=== PATIENT | male | born 1950 | race Caucasian/White ===

== ENCOUNTER 2018-03-31 00:26 | Emergency (ER) | payer MEDICARE, BC ==
[2018-03-31] MEDS ORDERED: Ketorolac 30 MG/ML SDV IVPUSH ONE ×2 (00:43→01:38)
[2018-03-31] MEDS ORDERED: Sodium Chloride 0.9% 10 ML Syringe FLUSH PRN (00:43)
[2018-03-31] MEDS ORDERED: Sodium Chloride 0.9% 2.5 ML Syringe FLUSH PRN (00:43)
[2018-03-31] MEDS ORDERED: Aspirin 81 MG Tab.Chew PO ONE (00:43)
--- NOTE | 2018-03-31 00:50 | EDM.PDOC ---
ED HPI GENERAL MEDICAL PROBLEM - General Chief Complaint: Chest Pain Stated Complaint: CHEST PAIN Time Seen by Provider: 03/31/18 00:34 - History of Present Illness INITIAL COMMENTS - FREE TEXT/NARRATIVE: HISTORY AND PHYSICAL: History of present illness: The patient is a 67-year-old male who presents to the ED with 2 complaints; first he is complaining of 4 episodes of episodic sharp left-sided chest pain that occurred throughout the course of the entire day yesterday but is not occurring now. He says that he got a little short of breath and sweaty with these episodes that were very brief in duration and there was no radiation of the discomfort. It Was not associated with activity and and he ate and did all of his normal activities today despite discomfort. The patient tells me that he had a stress test about a year ago at [facility] in [place] which was negative after he had had an ER visit at [place] for chest pain. 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 He tells me he has had a slight cough but no fevers and the cough is nonproductive. He is to smoke when he was younger but currently is a nonsmoker he has not had any nausea vomiting diarrhea and has a set ate and drink normally today. His second complaint is that he has pain in his left upper extremity which she says is the entire arm. Initially he told me it was numb when I push him he says it is not numb and it is just painful and it is not swollen. He does not feel weak or tingly and he denies any trauma to the arm or neck/upper back. He says he did not do anything strenuous or unusual and he is right-hand dominant. He says it is the entire arm and he cannot defined episode in the bone or in the muscle is just achy. When I queried him why he came here after an entire day of left arm pain and these twinges of chest pain he said that he was "just getting worried about his arm". He is a challenging history as the patient continuously needs to be focused on the questions and I'm asking and to define his terminology more clearly to me. He has no leg pain or swelling or other extremity complaints. She tells me is not lightheaded or dizzy and has no neck or back pain. He is currently not having any chest discomfort. As for pain management of his left upper extremity the patient only took 2 baby aspirin throughout the entire day and evening. The patient is unsure of when he last had cholesterol and lipids checked and he has a significant family history of brothers both older and younger than him that her bradycardia had cardiac disease and stents as well as a father who has had open heart stents at 65. Review of systems: As per history of present illness and below otherwise all systems reviewed and negative. Past medical history: As per history of present illness and as reviewed below otherwise noncontributory. Surgical history: As per history of present illness and as reviewed below otherwise noncontributory. Social history: No reported history of drug or alcohol abuse. Family history: As per history of present illness and as reviewed below otherwise noncontributory. Physical exam: General: Well-developed well-nourished man who is nontoxic and vital signs are noted by me. I again asked him about his heart rate and he says that it is always low that is not new or different. HEENT: Atraumatic, normocephalic, pupils reactive, negative for conjunctival pallor or scleral icterus, mucous membranes moist, throat clear, neck supple, nontender, trachea midline. Lungs: Clear to auscultation, breath sounds equal bilaterally, chest nontender. Heart: S1S2, regular, negative for clicks, rubs, or JVD. Abdomen: Soft, nondistended, nontender. Negative for masses or hepatosplenomegaly. Negative for costovertebral tenderness. Pelvis: Stable nontender. Genitourinary: Deferred. Rectal: Deferred. Extremities: Atraumatic, negative for cords or calf pain. Neurovascular unremarkable. Full range of motion without defects or deficits. At the left upper extremity all the compartments are soft and there is no evidence of any skin changes erythema swelling or trauma appreciated and there are no palpable bony deformities. Neurovascular is intact throat the entire left upper extremity. Neuro: Awake, alert, oriented. Cranial nerves II through XII unremarkable. Cerebellum unremarkable. Motor and sensory unremarkable throughout. Exam nonfocal. Diagnostics: EKG CBC CMP INR chest x-ray troponin Therapeutics: IV O2 monitor aspirin--he says he took 2 baby aspirin yesterday so he will be redosed--Toradol Patient is feeling stable in the ED and I discussed at length with both him and the all testing results and my recommendation for observation admission. His story of the twinges of chest pain and the left arm pain do not coincide it is unclear if they are related but in light of his age on presentation and significant family history I stressed and recommended observation admission. After lengthy discussion with the patient and the patient and his separately he insists that he wants to go home and follow-up as an outpatient. I stressed to him my concerns and the risks involved and he accepts those. Again stressed the need to have close follow-up and reasons to return to the ED Impression: Atypical episodic chest pain, left upper extremity pain; refusal of admission Definitive disposition and diagnosis as appropriate pending reevaluation and review of above. chest Pain Score (Numeric/FACES): 4 - Related Data Allergies Allergy/AdvReac Type Severity Reaction Status Date / Time No Known Allergies Allergy Verified 03/31/18 00:39 Home Meds: Home Meds . [No Known Home Meds] 03/31/18 [History] Past Medical History Other HEENT History: wears glasses Cardiovascular History: Reports: None Respiratory History: Reports: None Gastrointestinal History: Reports: GERD Genitourinary History: Reports: None Musculoskeletal History: Reports: Fracture Other Musculoskeletal History: right wrist, right knee Neurological History: Reports: None Psychiatric History: Reports: None Endocrine/Metabolic History: Reports: None Hematologic History: Reports: None Immunologic History: Reports: None Oncologic (Cancer) History: Reports: None Dermatologic History: Reports: None - Past Surgical History Head Surgeries/Procedures: Reports: None HEENT Surgical History: Reports: None Cardiovascular Surgical History: Reports: None Respiratory Surgical History: Reports: None GI Surgical History: Reports: None Male Surgical History: Reports: None Endocrine Surgical History: Reports: None Neurological Surgical History: Reports: None Musculoskeletal Surgical History: Reports: ORIF Other Musculoskeletal Surgeries/Procedures:: ORIF right wrist Oncologic Surgical History: Reports: None ED ROS GENERAL - Review of Systems Review Of Systems: ROS reveals no pertinent complaints other than HPI. ED EXAM, GENERAL - Physical Exam Exam: See Below (See dictation) Course - Vital Signs Last Recorded V/S: Last Vital Signs Temp 36.6 C 03/31/18 00:26 Pulse 51 L 03/31/18 00:26 Resp 18 03/31/18 00:26 BP 156/77 H 03/31/18 00:26 Pulse Ox 98 03/31/18 00:26 - Orders/Labs/Meds Orders: Active Orders 24 hr Category Date Time Status Cardiac Monitoring [RC] . DIRECTED Care 03/31/18 00:43 Active EKG 12 Lead [EKG Documentation Completion] [RC] STAT Care 03/31/18 00:37 Active Oxygen Therapy, ED [RC] ASDIRECTED Care 03/31/18 00:43 Active Pulse Oximetry [RC] ASDIRECTED Care 03/31/18 00:43 Active Chest 1V Frontal [CR] Stat Exams 03/31/18 00:43 Taken Sodium Chloride 0.9% [Saline Flush] Med 03/31/18 00:43 Active 10 ml FLUSH ASDIRECTED PRN Sodium Chloride 0.9% [Saline Flush] Med 03/31/18 00:43 Active 2.5 ml FLUSH ASDIRECTED PRN Saline Lock Insert [OM.PC] Stat Oth 03/31/18 00:43 Ordered Medication Orders Sodium Chloride (Saline Flush) 10 ml FLUSH ASDIRECTED PRN PRN Reason: Keep Vein Open Sodium Chloride (Saline Flush) 2.5 ml FLUSH ASDIRECTED PRN PRN Reason: Keep Vein Open Labs: Laboratory Tests 03/31/18 03/31/18 03/31/18 Range/Units 00:40 00:40 00:40 WBC 6.93 (4.0-11.0) K/uL RBC 4.46 L (4.50-5.90) M/uL Hgb 14.8 (13.0-17.0) g/dL Hct 42.6 (38.0-50.0) % MCV 95.5 (80.0-98.0) fL MCH 33.2 H (27.0-32.0) pg MCHC 34.7 (31.0-37.0) g/dL RDW Std Deviation 41.6 (28.0-62.0) fl RDW Coeff of Columba 12 (11.0-15.0) % Plt Count 288 (150-400) K/uL MPV 9.10 (7.40-12.00) fL Neut % (Auto) 40.2 L (48.0-80.0) % Lymph % (Auto) 42.9 H (16.0-40.0) % Turner % (Auto) 11.0 (0.0-15.0) % Eos % (Auto) 4.9 (0.0-7.0) % Baso % (Auto) 1.0 (0.0-1.5) % Neut # (Auto) 2.8 (1.4-5.7) K/uL Lymph # (Auto) 3.0 H (0.6-2.4) K/uL Turner # (Auto) 0.8 (0.0-0.8) K/uL Eos # (Auto) 0.3 (0.0-0.7) K/uL Baso # (Auto) 0.1 (0.0-0.1) K/uL INR 1.05 Sodium 140 (136-148) mmol/L Potassium 3.8 (3.5-5.1) mmol/L Chloride 106 (98-107) mmol/L Carbon Dioxide 27.3 (21.0-32.0) mmol/L BUN 22 H (7.0-18.0) mg/dL Creatinine 1.3 (0.8-1.3) mg/dL Est Cr Clr Drug Dosing TNP Estimated GFR (MDRD) 55.4 ml/min Glucose 103 (74-106) mg/dL Calcium 9.1 (8.5-10.1) mg/dL Total Bilirubin 0.4 (0.2-1.0) mg/dL AST 28 (15-37) IU/L ALT 34 (14-63) IU/L Alkaline Phosphatase 87 (46-116) U/L Troponin I < 0.050 (0.000-0.056) ng/mL Total Protein 6.9 (6.4-8.2) g/dL Albumin 4.0 (3.4-5.0) g/dL Globulin 2.9 (2.0-3.5) g/dL Albumin/Globulin Ratio 1.4 (1.3-2.8) Meds: Medications Generic Name Dose Route Start Last Admin Trade Name Freq PRN Reason Stop Dose Admin Sodium Chloride 10 ml 03/31/18 00:43 Saline Flush FLUSH ASDIRECTED PRN Keep Vein Open Sodium Chloride 2.5 ml 03/31/18 00:43 Saline Flush FLUSH ASDIRECTED PRN Keep Vein Open Discontinued Medications Generic Name Dose Route Start Last Admin Trade Name Freq PRN Reason Stop Dose Admin Aspirin 324 mg 03/31/18 00:43 03/31/18 00:58 Aspirin PO 03/31/18 00:44 324 mg ONETIME ONE Administration Ketorolac Tromethamine 30 mg 03/31/18 00:43 03/31/18 00:58 Toradol IVPUSH 03/31/18 00:44 Not Given ONETIME ONE Ketorolac Tromethamine 30 mg 03/31/18 01:38 03/31/18 01:42 Toradol IVPUSH 03/31/18 01:39 30 mg ONETIME ONE Administration Departure - Departure Time of Disposition: 01:55 Disposition: Home, Self-Care 01 Condition: Good Clinical Impression: Pain of left upper extremity, Refusal of care by patient Chest pain Qualifiers: Chest pain type: unspecified Qualified Code(s): R07.9 - Chest pain, unspecified - Discharge Information Referrals: Vance Randolph Jr, PA-C [Primary Care Provider] - Forms: ED Department Discharge Additional Instructions: The following information is given to patients seen in the emergency department who are being discharged to home. This information is to outline your options for follow-up care. We provide all patients seen in our emergency department with a follow-up referral. The need for follow-up, as well as the timing and circumstances, are variable depending upon the specifics of your emergency department visit. If you don't have a primary care physician on staff, we will provide you with a referral. We always advise you to contact your personal physician following an emergency department visit to inform them of the circumstance of the visit and for follow-up with them and/or the need for any referrals to a consulting specialist. The emergency department will also refer you to a specialist when appropriate. This referral assures that you have the opportunity for followup care with a specialist. All of these measure are taken in an effort to provide you with optimal care, which includes your followup. Under all circumstances we always encourage you to contact your private physician who remains a resource for coordinating your care. When calling for followup care, please make the office aware that this follow-up is from your recent emergency room visit. If for any reason you are refused follow-up, please contact the [facility] emergency department at and ask to speak to the emergency department charge nurse. [facility] Primary care- Internal Medicine and Family [place] [id number] [place] [id number] Please contact your provider tomorrow morning or one of our providers for follow -up care as we discussed and take 4 baby aspirin or an Ecotrin 325 mg once a day until you're followed up. Please return to ER as needed and as discussed. - My Orders Last 24 Hours: My Active Orders 03/31/18 00:37 EKG 12 Lead [EKG Documentation Completion] [RC] STAT 03/31/18 00:43 Cardiac Monitoring [RC] . DIRECTED Oxygen Therapy, ED [RC] ASDIRECTED Pulse Oximetry [RC] ASDIRECTED Chest 1V Frontal [CR] Stat Sodium Chloride 0.9% [Saline Flush] 10 ml FLUSH ASDIRECTED PRN Sodium Chloride 0.9% [Saline Flush] 2.5 ml FLUSH ASDIRECTED PRN Saline Lock Insert [OM.PC] Stat - Assessment/Plan Last 24 Hours: My Active Orders 03/31/18 00:37 EKG 12 Lead [EKG Documentation Completion] [RC] STAT 03/31/18 00:43 Cardiac Monitoring [RC] . DIRECTED Oxygen Therapy, ED [RC] ASDIRECTED Pulse Oximetry [RC] ASDIRECTED Chest 1V Frontal [CR] Stat Sodium Chloride 0.9% [Saline Flush] 10 ml FLUSH ASDIRECTED PRN Sodium Chloride 0.9% [Saline Flush] 2.5 ml FLUSH ASDIRECTED PRN Saline Lock Insert [OM.PC] Stat
[2018-03-31 01:17] LABS: CHLORIDE,CL 106 mmol/L (98-107); SODIUM,NA 140 mmol/L (136-148)
[2018-03-31 02:14] VITALS: BP 127/73
--- NOTE | 2018-04-01 13:48 | CR ---
EXAM DATE: 03/31/18 PATIENT'S AGE: 67 Patient: LAWRENCE GARCIA Facility: [place], [place] Site . Site : 1950 Study: XRay Chest [id number]/14/2018 1:04:12 AM Ordering Physician: Rei Shaw Final Report: INDICATION: Chest Pain TECHNIQUE: Chest 1 view COMPARISON: October 28, 2013 FINDINGS: Cardiovascular and mediastinum: Heart size and vasculature are normal in caliber and appearance. Mediastinum is within normal limits. Lungs and pleural space: No focal consolidation. No sign of pleural effusion. No pneumothorax. Bones and soft tissues: No significant findings. IMPRESSION: No acute cardiopulmonary disease. Dictated by Gumaro Aponte MD @ 03/31/2018 1:22:56 AM Dictated by: Gumaro Aponte MD @ 03/31/2018 01:23:02 (Electronic Signature) Report Signed by Proxy. [email or web address]
== END 2018-03-31 02:16 | disposition home or self-care (01) ==
LOC: MW.ED 00:26
DX: R07.89 Other chest pain (principal); M79.602 Pain in left arm
CPT/HCPCS: 71045; 80053; 84484; 85025; 85610; 93005; 96374; 99285; A9270; J1885; 99283